=== PATIENT | male | born 1965 | race Caucasian/White ===

== ENCOUNTER → 2024-02-05 | Outpatient (CLI) | payer BC | LOC: LAB 09:27 → LAB SHORT 09:27 | DX: Z00.00 Encounter for general adult medical examination without abnormal findings (principal) ==

== ENCOUNTER → 2024-03-14 | Outpatient (CLI) | payer SELFPAY ==
[2024-03-14 12:01] LABS: CHOL/HDL RATIO 3.2; Cholesterol 134 mg/dL (50-200); HDL Cholesterol 42 mg/dL (>39); LDL/HDL RATIO 1.5; Low Density Lipoprotein Chol 63 mg/dL (0-110); Triglycerides 143 mg/dL (30-160); Very Low Density Lipoprot Chol 28 mg/dL (6-32)
== END ==
LOC: LAB SHORT 08:42 → LAB 08:42
PROVIDERS: Family Medicine
DX: E78.49 Other hyperlipidemia (principal)
CPT/HCPCS: 80061

== ENCOUNTER → 2024-09-12 | Outpatient (CLI) | payer BC ==
[2024-09-12 12:05] LABS: Alanine Aminotransfer (ALT/SGP 24 U/L (12-78); Albumin, Blood 3.5 g/dL (3.4-5.0); Albumin/Globulin Ratio 1.1 (0.8-1.8); Alk Phos 65 U/L (50-136); Anion Gap 8 mmol/L (3-11); Aspartate Aminotrans (AST/SGOT 16 U/L (12-37); Bilirubin, Total 0.5 mg/dL (0.1-1.0); Blood Urea Nitrogen 13 mg/dL (8-24); Bun/Creatinine Ratio 14.7 (12.0-20.0); CHOL/HDL RATIO 3.1; CO2, Blood 30 mmol/L (21-32); Calcium, Blood 9.4 mg/dL (8.5-10.1); Chloride, Blood 107 mmol/L (98-108); Cholesterol 150 mg/dL (50-200); Creatinine, Blood 0.89 mg/dL (0.60-1.20); Globulin, Blood 3.3 g/dL (2.2-4.0); Glomerular Filtration Rate 100 (60-); Glucose, Blood 99 mg/dL (70-99); HDL Cholesterol 48 mg/dL (>39); LDL/HDL RATIO 1.5; Low Density Lipoprotein Chol 71 mg/dL (0-110); Potassium, Blood 4.2 mmol/L (3.5-5.5); Sodium, Blood 141 mmol/L (136-145); Total Protein, Blood 6.8 g/dL (6.4-8.2); Triglycerides 154 mg/dL (30-160); Very Low Density Lipoprot Chol 30 mg/dL (6-32)
== END | disposition home or self-care (01) ==
LOC: LAB 08:45 → LAB SHORT 08:45
PROVIDERS: Family Medicine
DX: I10 Essential (primary) hypertension (principal); R73.01 Impaired fasting glucose
CPT/HCPCS: 80053; 80061; 83036